=== PATIENT | female | born 1945 | race Caucasian/White ===

== ENCOUNTER 2020-01-20 03:48 | Inpatient (IN) | payer OTHER, MEDICARE ==
[~2020-01-20] VITALS: Ht 160 cm; Wt 77.4 kg
[2020-01-20] MEDS ORDERED: PANTOPRAZOLE 80 MG in SODIUM CHLORIDE 0.9% 50 ML IVPB ONE (04:08)
[2020-01-20] MEDS ORDERED: PANTOPRAZOLE 40 MG IV ONE (04:16)
--- NOTE | 2020-01-20 04:40 | NUR ---
Patient presents to ER c/o bleeding from rectum which started this morning. Patient silvana abd pain, dizziness, weakness, or SOB. Patient has a hx of the same and states it was an ulcer. Patient is in NAD. Respirations even and unlabored.
[2020-01-20 04:43] LABS: BASOPHILS # (AUTO) 0.03 x10^3/uL (0-0.1); BASOPHILS % (AUTO) 1 % (0-1); EOSINOPHILS % (AUTO) 1 % (1-7); LYMPHOCYTES # (AUTO) 2.72 x10^3/uL (1-3.4); LYMPHOCYTES % (AUTO) 38 % (22-44); MD NO; MEAN CORPUSCULAR HEMOGLOBIN 26.2 pg (27.0-34.8); MEAN CORPUSCULAR HGB CONC 32.1 g/dL (32.4-35.8); MEAN CORPUSCULAR VOLUME 81.8 fL (80-100); MEAN PLATELET VOLUME 7.6 fL (7.4-10.4); MONOCYTES # (AUTO) 0.46 x10^3/uL (0.2-0.8); MONOCYTES % (AUTO) 6 % (2-9); NEUTROPHILS % (AUTO) 54 % (42-75); PLATELET COUNT 312 x10^3/uL (130-400); RED CELL DISTRIBUTION WIDTH 15.6 % (9.6-15.2)
[2020-01-20 04:51] LABS: PROTHROMBIN TIME 10.6 Seconds (9.6-11.5)
[2020-01-20 04:53] LABS: ALANINE AMINOTRANSFERASE 19 U/L (12-78); ALBUMIN 3.4 g/dL (3.4-5.0); ANION GAP 6 mmol/L (5-15); CALCIUM 8.7 mg/dL (8.5-10.1); CHLORIDE 110 mmol/L (98-107); CREATININE 0.72 mg/dL (0.55-1.02)
[2020-01-20 04:55] LABS: ALKALINE PHOSPHATASE 80 U/L (45-117); BILIRUBIN,TOTAL 0.2 mg/dL (0.2-1.0); TOTAL PROTEIN 6.7 g/dL (6.4-8.2)
[2020-01-20] MEDS ORDERED: SUMA50TA4 PO (06:01)
[2020-01-20] MEDS ORDERED: METO25TA35 PO (06:01)
[2020-01-20] MEDS ORDERED: RIZA10TA20 PO (06:01)
[2020-01-20] MEDS ORDERED: OMEP40CA42 PO (06:01)
[2020-01-20] MEDS ORDERED: ESCI20TA PO (06:01)
--- NOTE | 2020-01-20 06:46 | NUR ---
Report given to CINDY Calles. Patient to be transferred to room 516.
[2020-01-20 07:50] VITALS: BP 147/73
[2020-01-20] MEDS ORDERED: hydrALAzine 20 MG/ML, 1ML IVPush PRN (10:30)
[2020-01-20] MEDS ORDERED: LABETALOL 5MG/ML, 20ML IVPush PRN (10:30)
[2020-01-20] MEDS ORDERED: LIDODERM 5% PATCH TD PRN (10:30)
[2020-01-20] MEDS ORDERED: ONDANSETRON 2MG/ML, 2ML IVPush PRN (10:30)
[2020-01-20] MEDS: NS + 20MEQ KCL 1,000 ML IV SCH ×2 (11:28→20:04)
[2020-01-20] MEDS: PANTOPRAZOLE 40 MG IV IVPush SCH (11:28)
[2020-01-20 14:00] VITALS: BP 150/67
[2020-01-20] MEDS ORDERED: MOVIPREP POWDER 1 PREP KIT PO ONE (17:00)
[2020-01-20 20:32] VITALS: BP 146/74
[2020-01-20] MEDS ORDERED: LIDODERM REMOVE PATCH NOTE XX SCH (21:00)
[2020-01-21 01:12] VITALS: BP 165/82
[2020-01-21 03:48] VITALS: BP 155/81
[2020-01-21] MEDS: NS + 20MEQ KCL 1,000 ML IV SCH (04:00)
[2020-01-21 04:17] LABS: BASOPHILS # (AUTO) 0.05 x10^3/uL (0-0.1); BASOPHILS % (AUTO) 1 % (0-1); EOSINOPHILS # (AUTO) 0.07 x10^3/uL (0-0.4); EOSINOPHILS % (AUTO) 1 % (1-7); LYMPHOCYTES # (AUTO) 2.28 x10^3/uL (1-3.4); LYMPHOCYTES % (AUTO) 34 % (22-44); MD NO; MEAN CORPUSCULAR HGB CONC 31.5 g/dL (32.4-35.8); MEAN CORPUSCULAR VOLUME 82.5 fL (80-100); MEAN PLATELET VOLUME 7.7 fL (7.4-10.4); MONOCYTES # (AUTO) 0.39 x10^3/uL (0.2-0.8); MONOCYTES % (AUTO) 6 % (2-9); NEUTROPHILS # (AUTO) 3.92 x10^3/uL (1.8-6.8); NEUTROPHILS % (AUTO) 58 % (42-75); PLATELET COUNT 287 x10^3/uL (130-400); RED BLOOD COUNT 4.06 x10^6/uL (3.82-5.3); RED CELL DISTRIBUTION WIDTH 15.7 % (9.6-15.2)
[2020-01-21 04:35] LABS: ANION GAP 5 mmol/L (5-15); CALCIUM 8.6 mg/dL (8.5-10.1); CHLORIDE 113 mmol/L (98-107)
[2020-01-21 04:36] LABS: CREATININE 0.62 mg/dL (0.55-1.02)
[2020-01-21 06:21] VITALS: BP 157/83
[2020-01-21] MEDS ORDERED: PROPOFOL 10 MG/ML, 20ML ONE (07:32)
[2020-01-21] MEDS ORDERED: DIAZEPAM 5 MG/ML, 2ML IVPush PRN (08:00)
[2020-01-21] MEDS ORDERED: LABETALOL 5MG/ML, 20ML IV PRN (08:00)
[2020-01-21] MEDS ORDERED: HYDROmorphone 1 MG/ML, 1ML INJ IVPush PRN (08:00)
[2020-01-21] MEDS ORDERED: hydrALAzine 20 MG/ML, 1ML IV PRN (08:00)
[2020-01-21] MEDS ORDERED: PROMETHAZINE 12.5 MG SUPP PR PRN (08:00)
[2020-01-21] MEDS ORDERED: ONDANSETRON 2MG/ML, 2ML IVPush PRN (08:00)
[2020-01-21] MEDS ORDERED: ACETAMINOPHEN 325 MG TABLET PO PRN (08:00)
[2020-01-21] MEDS ORDERED: EPHEDRINE 50 MG/ML, 1ML IVPush PRN (08:00)
[2020-01-21] MEDS ORDERED: ALBUTEROL SULFATE 2.5 MG/3 ML NPPB PRN (08:00)
[2020-01-21] MEDS ORDERED: MIDAZOLAM 1 MG/ML, 2ML IV PRN (08:00)
[2020-01-21] MEDS ORDERED: FENTANYL PF 100 MCG/2ML IV PRN (08:00)
[2020-01-21] MEDS ORDERED: MEPERIDINE/PF 25MG/0.5ML IVPush PRN (08:00)
[2020-01-21] MEDS ORDERED: DIPHENHYDRAMINE 50 MG/ML, 1ML IVPush PRN (08:00)
[2020-01-21] MEDS ORDERED: OXYcodone 5 MG/5 ML ORAL.SOL UDC PO PRN (08:00)
[2020-01-21] MEDS ORDERED: PROMETHAZINE 25 MG/ML, 1ML IVPush PRN (08:00)
[2020-01-21] MEDS ORDERED: METOPROLOL TARTRATE 25 MG TAB PO SCH (09:00)
[2020-01-21] MEDS ORDERED: ESCITALOPRAM 10MG TABLET PO SCH (09:00)
[2020-01-21] MEDS: PANTOPRAZOLE 40 MG IV IVPush SCH (09:13)
[2020-01-21] MEDS ORDERED: ACETAMINOPHEN 325 MG TABLET PO ONE (10:30)
[2020-01-21] MEDS ORDERED: HYDR25SU3 PR (11:31)
[2020-01-21 12:18] VITALS: BP 126/63
[2020-01-21] MEDS ORDERED: HYDROCORTISONE 25 MG SUPP PR SCH (21:00)
== END 2020-01-21 15:09 | disposition home or self-care (01) | DRG 394 ==
LOC: ED 04:16 → EDIP 06:16 → 5SO 07:38
PROVIDERS: ADMIT Hospitalist; ATTEND Hospitalist
PROC: 0DJD8ZZ Inspection of Lower Intestinal Tract, Via Natural or Artificial Opening Endoscopic (ICD-10-PCS; principal; 2020-01-21 07:30)
DX: K64.2 Third degree hemorrhoids (principal); K62.5 Hemorrhage of anus and rectum; D62 Acute posthemorrhagic anemia; K62.6 Ulcer of anus and rectum; E11.9 Type 2 diabetes mellitus without complications; F32.9 Major depressive disorder, single episode, unspecified; F41.9 Anxiety disorder, unspecified; K21.9 Gastro-esophageal reflux disease without esophagitis; L30.9 Dermatitis, unspecified
CPT/HCPCS: 36415; 80048; 80053; 83690; 85014; 85018; 85025; 85610; 86850; 86900; G0378; J2704; J3480; C9113